=== PATIENT | female | born 1945 | race Two or more races ===

== ENCOUNTER 2025-07-09 12:15 | Inpatient (IN) | payer OTHER ==
[~2025-07-09] VITALS: Ht 91.4 cm; Wt 65.3 kg
[2025-07-09] MEDS ORDERED: CANDESARTAN CILE8 MG (16:12)
[2025-07-09] MEDS ORDERED: CLONAZEPAM0.5 MG PO (16:13)
[2025-07-09] MEDS ORDERED: ROSUVASTATIN CAL5 MG PO (16:13)
[2025-07-16] MEDS ORDERED: BUPIVACAINE HCL/MPF 0.5% 30ML VIAL ONE (13:03)
[2025-07-16] MEDS ORDERED: LIDOCAINE HCL 1%/EPINEPHRINE 20ML VIAL IJ ONE (13:03)
[2025-07-16] MEDS ORDERED: CEFTRIAXONE SODIUM 2,000 MG VIAL ONE (13:03)
[2025-07-16] MEDS ORDERED: METRONIDAZOLE/SODIUM CHLORIDE 500 MG/100 ML PIGGYBACK IV ONE ×2 (13:04→23:56)
[2025-07-16] MEDS ORDERED: MORPHINE SULFATE 4 MG/ML CARTRIDGE IV PRN (15:45)
[2025-07-16] MEDS ORDERED: DEXTROSE 50 % IN WATER 0.5 G/ML DISP.SYRIN IV PRN (15:45)
[2025-07-16] MEDS ORDERED: OxyCODONE HCL 5 MG TABLET (ROXICODONE) PO PRN (15:45)
[2025-07-16] MEDS ORDERED: 0.9 % SODIUM CHLORIDE 1,000 ML IV SCH (15:45)
[2025-07-16] MEDS ORDERED: ONDANSETRON HCL 2 MG/ML VIAL IV PRN (15:45)
[2025-07-16] MEDS ORDERED: GABAPENTIN 300 MG CAPSULE PO SCH (17:00)
[2025-07-16] MEDS ORDERED: HYOSCYAMINE SULFATE 0.125 MG TAB.SUBL SL SCH (17:00)
[2025-07-16] MEDS ORDERED: METRONIDAZOLE/SODIUM CHLORIDE 500 MG/100 ML PIGGYBACK IV SCH (17:00)
[2025-07-16 17:35] LABS: BASO % 0.3 % (0.1-1.2); EOS # 0.05 (0.04-0.54); EOS % 0.5 % (0.7-7.0); LYMPH # 1.15 (1.18-3.74); LYMPH % 11.6 % (19.3-53.1); MEAN PLATELET VOLUME 10.50 fl (9.4-12.4); MONO # 0.68 (0.24-0.82); MONO % 6.9 % (4.7-12.5); NEUT # 7.94 (1.56-6.13); NEUT % 80.4 % (34.0-71.1); RED CELL DISTRIBUTION WIDTH 15.0 % (11.6-14.4)
[2025-07-16] MEDS ORDERED: ENALAPRILAT DIHYDRATE 1.25 MG/ML VIAL IV PRN (17:45)
[2025-07-16] MEDS ORDERED: LEVALBUTEROL HCL 0.63 MG/3 ML SOLUTION IH SCH (18:00)
[2025-07-16 18:12] LABS: BUN CREA RATIO 22.0 (7.0-25.0); CREATININE SERUM 0.95 mg/dL (0.55-1.02); GFR 56.74; GLUCOSE FASTING 115.0 mg/dL (65-100); OSMOLALITY SERUM 291.0 MOSM/KG (275-295)
[2025-07-16] MEDS ORDERED: ACETAMINOPHEN 500 MG GEL..CAP PO SCH (20:00)
[2025-07-16] MEDS ORDERED: ACETAMINOPHEN 500 MG GEL..CAP PO ONE (20:22)
[2025-07-16] MEDS ORDERED: CELECOXIB 200 MG CAPSULE PO ONE (20:23)
[2025-07-16] MEDS ORDERED: FAMOTIDINE/PF 20 MG/2 ML VIAL ONE (20:23)
[2025-07-16] MEDS ORDERED: ENALAPRILAT DIHYDRATE 1.25 MG/ML VIAL IV ONE (20:33)
[2025-07-16] MEDS ORDERED: FAMOTIDINE/PF 20 MG/2 ML VIAL IV PUSH SCH (21:00)
[2025-07-16] MEDS ORDERED: CELECOXIB 200 MG CAPSULE PO SCH (21:00)
[2025-07-17] MEDS ORDERED: ACETAMINOPHEN 500 MG GEL..CAP PO ONE (00:04)
[2025-07-17 04:16] VITALS: BP 131/69; O2SAT 100
[2025-07-17 08:57] VITALS: BP 81/55; O2SAT 95
[2025-07-17] MEDS ORDERED: PATIENTS OWN MEDICATION (MEDICAMENTO EN PISO) PO SCH (09:00)
[2025-07-17] MEDS ORDERED: CANDESARTAN CILEXETIL 8 MG TAB PO SCH (09:00)
[2025-07-17 11:05] LABS: BASO % 0.1 % (0.1-1.2); EOS # 0.00 (0.04-0.54); EOS % 0.0 % (0.7-7.0); LYMPH # 0.93 (1.18-3.74); LYMPH % 5.7 % (19.3-53.1); MEAN PLATELET VOLUME 11.10 fl (9.4-12.4); MONO # 1.11 (0.24-0.82); MONO % 6.7 % (4.7-12.5); NEUT # 14.32 (1.56-6.13); NEUT % 87.1 % (34.0-71.1); RED CELL DISTRIBUTION WIDTH 15.0 % (11.6-14.4)
[2025-07-17 11:38] LABS: BUN CREA RATIO 19.0 (7.0-25.0); CREATININE SERUM 0.96 mg/dL (0.55-1.02); GFR 56.06; GLUCOSE FASTING 110.0 mg/dL (65-100); OSMOLALITY SERUM 286.0 MOSM/KG (275-295)
[2025-07-17] MEDS ORDERED: TAMSULOSIN HCL 0.4 MG CAP PO STA (12:15)
[2025-07-17 16:18] VITALS: BP 98/54
[2025-07-17] MEDS ORDERED: ROSUVASTATIN CALCIUM 10 MG TABLET PO SCH (17:00)
[2025-07-17] MEDS ORDERED: ENOXAPARIN SODIUM 40 MG/0.4 ML SYRINGE SUBCUTANEO SCH (17:00)
[2025-07-17] MEDS ORDERED: CLONAZEPAM 1 MG TABLET PO SCH (22:45)
[2025-07-18 00:43] VITALS: BP 92/58; O2SAT 95
[2025-07-18 07:32] LABS: BASO % 0.2 % (0.1-1.2); EOS # 0.10 (0.04-0.54); EOS % 1.0 % (0.7-7.0); LYMPH # 1.32 (1.18-3.74); LYMPH % 13.1 % (19.3-53.1); MEAN PLATELET VOLUME 10.80 fl (9.4-12.4); MONO # 0.77 (0.24-0.82); MONO % 7.6 % (4.7-12.5); NEUT # 7.86 (1.56-6.13); NEUT % 77.8 % (34.0-71.1); RED CELL DISTRIBUTION WIDTH 14.9 % (11.6-14.4)
[2025-07-18 08:00] VITALS: BP 102/69; BP 94/56; O2SAT 96; O2SAT 98
[2025-07-18 08:04] LABS: BUN CREA RATIO 17.0 (7.0-25.0); CREATININE SERUM 0.98 mg/dL (0.55-1.02); GFR 54.75; GLUCOSE FASTING 82.0 mg/dL (65-100); OSMOLALITY SERUM 291.0 MOSM/KG (275-295)
[2025-07-18] MEDS ORDERED: TAMSULOSIN HCL 0.4 MG CAP PO SCH (09:00)
[2025-07-18] MEDS ORDERED: Cyanocobalamin/Mecobalamin 1 TAB.SL SL SCH (09:00)
[2025-07-18] MEDS ORDERED: SOD FERRIC GLUC COMPLX/SUCROSE 62.5 MG in 0.9 % SODIUM CHLORIDE 50 ML IV SCH (09:00)
[2025-07-18] MEDS ORDERED: POTASSIUM PHOS,M-BASIC-D-BASIC 15 MM in 0.9 % SODIUM CHLORIDE 250 ML IV NR (09:00)
[2025-07-18] MEDS ORDERED: ENOXAPARIN SODIUM 40 MG/0.4 ML SYRINGE SUBCUTANEO SCH (09:00)
[2025-07-18] MEDS ORDERED: 0.9 % SODIUM CHLORIDE 500 ML IV SCH (09:15)
[2025-07-18 16:00] VITALS: BP 114/60; O2SAT 97
[2025-07-19 00:17] VITALS: BP 130/83; O2SAT 96
[2025-07-19 00:20] VITALS: BP 130/83; O2SAT 96
[2025-07-19 08:00] VITALS: BP 121/75; O2SAT 96
[2025-07-19] MEDS ORDERED: INTESTINEX680 M1 PO (11:34)
[2025-07-19] MEDS ORDERED: HYOSCYAMINE0.125 M1 SL (11:35)
== END 2025-07-19 13:01 | disposition home or self-care (01) | DRG 331 ==
LOC: O/R 07-16 10:00 → SURG 07-16 12:15 → SURH 07-17 02:28
PROVIDERS: Internal Medicine Geriatric Medicine; ADMIT Surgery; ATTEND Surgery
PROC: 07BB4ZZ Excision of Mesenteric Lymphatic, Percutaneous Endoscopic Approach (ICD-10-PCS; 2025-07-16)
PROC: 3E0F7GC Introduction of Other Therapeutic Substance into Respiratory Tract, Via Natural or Artificial Opening (ICD-10-PCS; 2025-07-16)
PROC: 0DTF4ZZ Resection of Right Large Intestine, Percutaneous Endoscopic Approach (ICD-10-PCS; principal; 2025-07-16 15:45)
DX: C18.2 Malignant neoplasm of ascending colon (principal); K63.89 Other specified diseases of intestine; E78.00 Pure hypercholesterolemia, unspecified